=== PATIENT | female | born 1955 | race Caucasian/White ===

== ENCOUNTER 2018-01-11 09:47 | Outpatient (CLI) | payer BC | END 2018-01-11 09:48 | disposition home or self-care (01) | LOC: BICMAMMO 09:47 | PROVIDERS: ATTEND Family Medicine | DX: Z12.31 Encounter for screening mammogram for malignant neoplasm of breast (principal); Z80.3 Family history of malignant neoplasm of breast | CPT/HCPCS: 77063; 77067 ==

== ENCOUNTER 2019-03-06 12:28 | Outpatient (CLI) | payer BC ==
--- NOTE | 2019-03-06 12:53 | MMO ---
Bilateral MAMMO Bilat Screen [facility]. CLINICAL HISTORY: Patient is 63 years old and is seen for screening. The patient has the following family history of breast cancer: mother, paget's disease (of the nipple). The patient has no personal history of cancer. VIEWS: The views performed were: bilateral craniocaudal with tomosynthesis and bilateral mediolateral oblique with tomosynthesis. FILMS COMPARED: The present examination has been compared to a prior imaging study performed at [facility] on 01/11/2018. MAMMOGRAM FINDINGS: There are scattered fibroglandular densities. There is an asymmetry seen in the CC view only seen in the middle central region of the left breast. In the right breast, there are no suspicious masses, calcifications or areas of architectural distortion. IMPRESSION: ASYMMETRY IN THE LEFT BREAST REQUIRES ADDITIONAL EVALUATION. RECOMMEND DIAGNOSTIC MAMMOGRAM. ULTRASOUND MAY ALSO PROVE USEFUL AT RECALL. THE RESULTS OF THIS EXAM WERE SENT TO THE PATIENT. ACR BI-RADS Category 0 - Incomplete: Need additional imaging evaluation. [facility] will notify the patient of the need for additional imaging services. MAMMOGRAPHY NOTE: 1. A negative mammogram report should not delay a biopsy if a dominant of clinically suspicious mass is present. 2. Approximately 10% to 15% of breast cancers are not detected by mammography. 3. Adenosis and dense breasts may obscure an underlying neoplasm. Reported by: JAYSON DAVID MD Electonically Signed: [id number]
== END 2019-03-06 12:29 | disposition home or self-care (01) ==
LOC: BICMAMMO 12:28
PROVIDERS: ATTEND Physician Assistant
DX: Z12.31 Encounter for screening mammogram for malignant neoplasm of breast (principal); N64.89 Other specified disorders of breast; Z80.3 Family history of malignant neoplasm of breast
CPT/HCPCS: 77063; 77067

== ENCOUNTER 2019-03-13 12:51 | Outpatient (CLI) | payer BC ==
--- NOTE | 2019-03-13 13:10 | MMO ---
Left Breast MAMMO Unilat Diag [facility]DI LT+JODI. CLINICAL HISTORY: Patient is 63 years old and is seen for diagnostic exam. The patient has the following family history of breast cancer: mother, paget's disease (of the nipple). The patient has no personal history of cancer. VIEWS: The views performed were: left craniocaudal spot compression with tomosynthesis and left mediolateral with tomosynthesis. FILMS COMPARED: The present examination has been compared to prior imaging studies performed at [facility] on 01/11/2018 and 03/06/2019. MAMMOGRAM FINDINGS: Left breast asymmetry does not persist on additional views and is felt to represent superimposed breast tissue. There are no suspicious masses, suspicious calcifications, or new areas of architectural distortion. IMPRESSION: THERE IS NO MAMMOGRAPHIC EVIDENCE OF MALIGNANCY. A ROUTINE FOLLOW-UP MAMMOGRAM IN 1 YEAR IS RECOMMENDED. THE RESULTS OF THIS EXAM WERE SENT TO THE PATIENT. ACR BI-RADS Category 2 - Benign finding MAMMOGRAPHY NOTE: 1. A negative mammogram report should not delay a biopsy if a dominant of clinically suspicious mass is present. 2. Approximately 10% to 15% of breast cancers are not detected by mammography. 3. Adenosis and dense breasts may obscure an underlying neoplasm. Reported by: ANN MARIE RODRIGUEZ MD Electonically Signed: [id number]
== END 2019-03-13 12:52 | disposition home or self-care (01) ==
LOC: BICMAMMO 12:51
PROVIDERS: ATTEND Physician Assistant
DX: R92.2 Inconclusive mammogram (principal); Z80.3 Family history of malignant neoplasm of breast
CPT/HCPCS: G0279

== ENCOUNTER 2020-05-08 11:43 | Outpatient (CLI) | payer BC ==
--- NOTE | 2020-05-08 12:50 | MMO ---
Bilateral MAMMO Bilat Screen [facility]. CLINICAL HISTORY: Patient is 64 years old and is seen for screening. The patient has the following family history of breast cancer: mother, paget's disease (of the nipple). The patient has no personal history of cancer. VIEWS: The views performed were: bilateral craniocaudal with tomosynthesis and bilateral mediolateral oblique with tomosynthesis. FILMS COMPARED: The present examination has been compared to prior imaging studies performed at [facility] on 01/11/2018, 03/06/2019 and 03/13/2019. This study has been interpreted with the assistance of computer-aided detection. MAMMOGRAM FINDINGS: There are scattered fibroglandular densities. There are stable benign appearing calcifications seen in both breasts. There are no suspicious masses, suspicious calcifications, or new areas of architectural distortion. IMPRESSION: THERE IS NO MAMMOGRAPHIC EVIDENCE OF MALIGNANCY. A ROUTINE FOLLOW-UP MAMMOGRAM IN 1 YEAR IS RECOMMENDED. THE RESULTS OF THIS EXAM WERE SENT TO THE PATIENT. ACR BI-RADS Category 2 - Benign finding MAMMOGRAPHY NOTE: 1. A negative mammogram report should not delay a biopsy if a dominant of clinically suspicious mass is present. 2. Approximately 10% to 15% of breast cancers are not detected by mammography. 3. Adenosis and dense breasts may obscure an underlying neoplasm. Reported by: CURT CONTRERAS MD Electonically Signed: [id number]
== END 2020-05-08 11:44 | disposition home or self-care (01) ==
LOC: BICMAMMO 11:43
PROVIDERS: ATTEND Family Medicine
DX: Z12.31 Encounter for screening mammogram for malignant neoplasm of breast (principal); Z80.3 Family history of malignant neoplasm of breast
CPT/HCPCS: 77063; 77067

== ENCOUNTER 2021-08-18 10:27 | Outpatient (CLI) | payer BC | END 2021-08-18 10:28 | disposition home or self-care (01) | LOC: BICMAMMO 10:27 | PROVIDERS: ATTEND Family Medicine | DX: Z12.31 Encounter for screening mammogram for malignant neoplasm of breast (principal); Z80.3 Family history of malignant neoplasm of breast | CPT/HCPCS: 77063; 77067 ==

== ENCOUNTER 2022-09-20 11:56 | Outpatient (CLI) | payer BC | END 2022-09-20 11:57 | disposition home or self-care (01) | LOC: BICMAMMO 11:56 | PROVIDERS: ATTEND Family Medicine | DX: Z12.31 Encounter for screening mammogram for malignant neoplasm of breast (principal); Z80.3 Family history of malignant neoplasm of breast | CPT/HCPCS: 77063; 77067 ==

== ENCOUNTER 2023-09-26 12:48 | Outpatient (CLI) | payer MEDICARE, BC | END 2023-09-26 12:49 | disposition home or self-care (01) | LOC: BICMAMMO 12:48 | PROVIDERS: ATTEND Family Medicine | DX: Z12.31 Encounter for screening mammogram for malignant neoplasm of breast (principal); Z80.3 Family history of malignant neoplasm of breast | CPT/HCPCS: 77063; 77067 ==